=== PATIENT | male | born 1975 | race Caucasian/White ===

== ENCOUNTER 2017-07-26 16:46 | Emergency (ER) | payer OTHER ==
[~2017-07-26] VITALS: Wt 77.1 kg
[~2017-07-26 16:46] MED LIST: AUGMENTIN 875875 MG PO; NKHM
[2017-07-26] MEDS ORDERED: CLINDAMYCIN HC300 MG PO (17:19)
== END 2017-07-26 17:47 | disposition home or self-care (01) ==
LOC: ED 16:46
DX: Q18.0 Sinus, fistula and cyst of branchial cleft (principal); F17.200 Nicotine dependence, unspecified, uncomplicated; I10 Essential (primary) hypertension

== ENCOUNTER 2019-04-10 13:11 | Emergency (ER) | payer OTHER ==
[~2019-04-10] VITALS: Ht 187.9 cm; Wt 72.6 kg
[~2019-04-10 13:11] MED LIST changes: +CLINDAMYCIN HC300 MG PO
[2019-04-10] MEDS ORDERED: AMLODIPINE BESY10 MG PO (13:24)
[2019-04-10] MEDS ORDERED: HEALTHY HEART1 EACH PO (13:25)
[2019-04-10] MEDS ORDERED: IBUPROFEN600 MG PO (14:12)
[2019-04-10] MEDS ORDERED: DOXYCYCLINE100 M3 PO (14:12)
== END 2019-04-10 14:28 | disposition home or self-care (01) ==
LOC: ED 13:11
DX: L72.3 Sebaceous cyst (principal); L08.9 Local infection of the skin and subcutaneous tissue, unspecified; I10 Essential (primary) hypertension; Z79.899 Other long term (current) drug therapy

== ENCOUNTER 2020-04-27 01:11 | Emergency (ER) | payer OTHER ==
[~2020-04-27] VITALS: Ht 182.8 cm; Wt 77.1 kg
[~2020-04-27 01:11] MED LIST changes: +AMLODIPINE BESY10 MG PO; +DOXYCYCLINE100 M3 PO; +HEALTHY HEART1 EACH PO; +IBUPROFEN600 MG PO
[2020-04-27] MEDS ORDERED: CEPHALEXIN500 M1 PO ×2 (03:02→03:14)
== END 2020-04-27 03:34 | disposition left against medical advice (07) ==
LOC: ED 01:11
DX: S51.811A Laceration without foreign body of right forearm, initial encounter (principal); I10 Essential (primary) hypertension; F17.200 Nicotine dependence, unspecified, uncomplicated; Z79.899 Other long term (current) drug therapy; Z79.2 Long term (current) use of antibiotics; W25.XXXA Contact with sharp glass, initial encounter; Y93.89 Activity, other specified; Y92.89 Other specified places as the place of occurrence of the external cause; Y99.8 Other external cause status

== ENCOUNTER 2020-04-27 17:03 | Emergency (ER) | payer OTHER ==
[~2020-04-27 17:03] MED LIST changes: +CEPHALEXIN500 M1 PO
== END 2020-04-27 17:45 | disposition home or self-care (01) ==
LOC: ED 17:03
DX: Z48.00 Encounter for change or removal of nonsurgical wound dressing (principal); Z76.0 Encounter for issue of repeat prescription

== ENCOUNTER 2020-12-28 14:47 | Emergency (ER) | payer OTHER ==
[~2020-12-28] VITALS: Ht 187.9 cm; Wt 74.8 kg
[2020-12-28] MEDS ORDERED: POLYSPORIN OINT15 GM T (15:52)
[2020-12-28] MEDS ORDERED: SEPTDS PO (15:52)
== END 2020-12-28 23:25 | disposition home or self-care (01) ==
LOC: ED 14:47
DX: L02.11 Cutaneous abscess of neck (principal); Z79.899 Other long term (current) drug therapy

== ENCOUNTER 2021-03-02 12:58 | Emergency (ER) | payer OTHER ==
[~2021-03-02] VITALS: Ht 187.9 cm; Wt 72.6 kg
[~2021-03-02 12:58] MED LIST changes: +POLYSPORIN OINT15 GM T; +SEPTDS PO
== END 2021-03-02 15:26 | disposition left against medical advice (07) ==
LOC: ED 12:58
DX: M25.511 Pain in right shoulder (principal); Z53.21 Procedure and treatment not carried out due to patient leaving prior to being seen by health care provider